=== PATIENT | female | born 1975 | race Caucasian/White ===

== ENCOUNTER 2018-06-18 02:01 | Emergency (ER) | payer MEDICAID ==
--- NOTE | 2018-06-18 03:00 | EDM.PDOC ---
ED HPI GENERAL MEDICAL PROBLEM - General Chief Complaint: Lower Extremity Injury/Pain Stated Complaint: ROLLED RIGHT ANKLE Time Seen by Provider: 06/18/18 03:09 Source of Information: Reports: Patient, RN Notes Reviewed History Limitations: Reports: No Limitations - History of Present Illness INITIAL COMMENTS - FREE TEXT/NARRATIVE: 43-year-old female presents emergency department today complaint of right ankle pain, she injured herself earlier. She accidentally stepped in a hole and rolled her ankle, she is experiencing pain cannot bear weight right ankle Pain Score (Numeric/FACES): 8 - Related Data Allergies Allergy/AdvReac Type Severity Reaction Status Date / Time azithromycin [From Zithromax] Allergy Cannot Verified 06/18/18 02:41 Remember diphenhydramine Allergy Hyperactivi Verified 06/18/18 02:41 [From Benadryl] ty duloxetine [From Cymbalta] Allergy Headache Verified 06/18/18 02:41 ketorolac [From Toradol] Allergy Rash Verified 06/18/18 02:41 morphine Allergy Rash Verified 06/18/18 02:41 Home Meds: Home Meds Escitalopram Oxalate [Lexapro] 20 mg PO BEDTIME 06/18/18 [History] Ibuprofen [Motrin] 800 mg PO ASDIRECTED PRN 06/18/18 [History] LORazepam [Ativan] 1 mg PO ASDIRECTED PRN 06/18/18 [History] carBAMazepine [Tegretol] 400 mg PO ACLUNCH 06/18/18 [History] carBAMazepine [Tegretol] 600 mg PO ACBREAKFAST 06/18/18 [History] carBAMazepine [Tegretol] 600 mg PO BEDTIME 06/18/18 [History] levETIRAcetam [Keppra] 1,000 mg PO BID 06/18/18 [History] Past Medical History Gastrointestinal History: Reports: GERD 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: Musculoskeletal History: Reports: Back Pain, Chronic Neurological History: Reports: Headaches, Chronic, Seizure Psychiatric History: Reports: Anxiety, Depression - Infectious Disease History Infectious Disease History: Reports: Chicken Pox - Past Surgical History HEENT Surgical History: Reports: Tonsillectomy GI Surgical History: Reports: Cholecystectomy, Hernia Repair/Other Female Surgical History: Reports: Hysterectomy, Salpingo-Oophorectomy Social & Family History - Tobacco Use Smoking Status *Q: Current Every Day Smoker Years of Tobacco use: 25 Packs/Tins Daily: 0.5 - Caffeine Use Caffeine Use: Reports: Coffee, Soda - Recreational Drug Use Recreational Drug Use: No Review of Systems - Review of Systems Review Of Systems: See Below Musculoskeletal: Reports: Joint Pain (Right ankle pain) Skin: Reports: No Symptoms Neurological: Reports: No Symptoms ED EXAM, GENERAL - Physical Exam Exam: See Below Free Text/Narrative:: Examination the right ankle she has full range of motion of all digits however she does not tolerates any exam to the ankle joint itself cannot bear weight pedal pulse is +2 Exam Limited By: No Limitations General Appearance: Alert, Mild Distress ED TRAUMA EXTREMITY PROCEDURES - Splinting Right Lower Extremity Splint Site: Right ankle Pre-Procedure NV Status: Normal Post-Procedure NV Status: Normal Splint Material: Fiberglass Splint Design: Posterior Applied & Form Fitted By: Provider, Nurse Provider Post-Splint Application NV Check: NV Status Normal, Good Position Complications: No Course - Vital Signs Last Recorded V/S: Last Vital Signs Temp 97.1 F 06/18/18 02:53 Pulse 101 H 06/18/18 02:53 Resp 20 06/18/18 02:53 BP 113/62 06/18/18 02:53 Pulse Ox 97 06/18/18 02:53 - Orders/Labs/Meds Orders: Active Orders 24 hr Category Date Time Status Ankle Min 3V Rt [CR] Stat Exams 06/18/18 03:00 Taken Meds: Medications Discontinued Medications Generic Name Dose Route Start Last Admin Trade Name Freq PRN Reason Stop Dose Admin Fentanyl 50 mcg 06/18/18 03:08 06/18/18 03:13 Sublimaze IM 06/18/18 03:09 50 mcg ONETIME ONE Administration Fentanyl 100 mcg 06/18/18 03:45 06/18/18 03:51 Sublimaze IM 06/18/18 03:46 100 mcg ONETIME ONE Administration Departure - Departure Time of Disposition: 04:26 Disposition: Home, Self-Care 01 Condition: Good Clinical Impression: Closed fracture of right tibia and fibula Qualifiers: Encounter type: initial encounter Qualified Code(s): S82.201A - Unspecified fracture of shaft of right tibia, initial encounter for closed fracture; S82.401A - Unspecified fracture of shaft of right fibula, initial encounter for closed fracture - Discharge Information Referrals: PCP,None [Primary Care Provider] - Forms: ED Department Discharge Additional Instructions: Use oxycodone as needed for pain, please follow-up with your orthopedic provider upon return home - My Orders Last 24 Hours: My Active Orders 06/18/18 03:00 Ankle Min 3V Rt [CR] Stat - Assessment/Plan Last 24 Hours: My Active Orders 06/18/18 03:00 Ankle Min 3V Rt [CR] Stat Plan: Assessment Acuity = acute Site and laterality = distal tib-fib fracture Etiology = secondary to twisting injury Manifestations = pain Location of injury = Home Lab values = x-ray describes fracture above Plan She is placed in a posterior splint and crutches she will follow-up with orthopedics upon return home CV was provided of the x-ray This note was dictated using [employer] voice recognition software please call with any questions on syntax or grammar.
[2018-06-18] MEDS ORDERED: fentaNYL 100 MCG/2 ML SDV IM ONE ×2 (03:08→03:45)
--- NOTE | 2018-06-19 10:47 | CR ---
Ankle Min 3V Rt CLINICAL HISTORY: Pain, rolled FINDINGS: The soft tissues are swollen. There is a displaced fracture of the distal fibula. There is moderate asymmetry of the ankle mortise. There is a transverse fracture through the medial malleolus. Fracture through the posterior plafond is not excluded. Impression: Displaced fractures through the distal fibula and medial malleolus with some subluxation at the tibiotalar joint. The tibial plafond is not well seen and posterior fracture is not excluded
== END 2018-06-18 05:04 | disposition home or self-care (01) ==
LOC: JP.ED 02:01
DX: S82.841A Displaced bimalleolar fracture of right lower leg, initial encounter for closed fracture (principal); F41.9 Anxiety disorder, unspecified; F32.9 Major depressive disorder, single episode, unspecified; F17.210 Nicotine dependence, cigarettes, uncomplicated; Z88.1 Allergy status to other antibiotic agents; Z88.5 Allergy status to narcotic agent; Z79.899 Other long term (current) drug therapy; X50.1XXA Overexertion from prolonged static or awkward postures, initial encounter
CPT/HCPCS: 29515; 73610; 96372; 99284; J3010